=== PATIENT | male | born 1960 | race Caucasian/White ===

== ENCOUNTER 2020-07-31 09:25 | Emergency (ER) | payer OTHER ==
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
[2020-07-31 14:47] VITALS: BP 158/113
== END 2020-07-31 14:40 | disposition home or self-care (01) ==
LOC: ER 09:25
DX: S49.92XA Unspecified injury of left shoulder and upper arm, initial encounter (principal); S09.90XA Unspecified injury of head, initial encounter; V44.6XXA Car passenger injured in collision with heavy transport vehicle or bus in traffic accident, initial encounter; F17.200 Nicotine dependence, unspecified, uncomplicated; I10 Essential (primary) hypertension
CPT/HCPCS: 70450; 72125; 99284